=== PATIENT | male | born 1975 | race Caucasian/White ===

== ENCOUNTER 2017-02-14 11:16 | Emergency (ER) | payer OTHER ==
[~2017-02-14] VITALS: Ht 177.8 cm; Wt 88.0 kg
[2017-02-14 11:34] VITALS: BP 143/81; PULSE 68; RESP 15; TEMP 98.1; O2SAT 97
[2017-02-14] MEDS ORDERED: LIPI10TA PO (11:39)
[2017-02-14] MEDS ORDERED: CEPH-460 PO (12:31)
--- NOTE | 2017-02-14 12:32 | PD ---
HPI Chief Complaint: Laceration/Skin Injury Time Seen by Provider: 12:24 Travel History International Travel<30 days: No Contact w/Intl Traveler<30days: No Traveled to known affect area: No History of Present Illness HPI 41 -year-old male with multiple superficial abrasions/laceration to anterior neck caused by a plant one day ago. The area has become slightly more swollen and red prompting his visit today. He denies fever or chills. His tetanus immunization is up-to-date. Symptom severity is moderate. No aggravating or alleviating factors. Patient thought the area may need stitches which prompted his visit today. PFSH Past Medical History Medical History: Denies Significant Hx Social History Tobacco Use: No Allergies-Medications (Allergen,Severity, Reaction): Coded Allergies: No Known Allergies (Unverified , 02/14/17) Reported Meds & Prescriptions Reported Meds & Active Scripts Active Reported Lipitor (Atorvastatin Calcium) 10 Mg Tab 10 Mg PO HS Review of Systems Except as stated in HPI: all other systems reviewed are Neg General / Constitutional: No: Fever Physical Exam Narrative GENERAL: Alert male. Well-appearing. SKIN: Warm and dry. Multiple superficial abrasions to the anterior aspect of the neck. 1.5CM laceration to the anterior neck was In place. Mild erythema. No drainage. No lymphadenopathy. HEAD: Normocephalic. EYES: No scleral icterus. No injection or drainage. NECK: Supple, trachea midline. No lymphadenopathy. CARDIOVASCULAR: Regular rate and rhythm RESPIRATORY: Breath sounds equal bilaterally. No accessory muscle use. Data Data Last Documented VS Vital Signs Date Time Temp Pulse Resp B/P (MAP) Pulse Ox O2 Delivery O2 Flow Rate FiO2 02/14/17 11:34 98.1 68 15 143/81 (101) 97 MDM Medical Decision Making Medical Screen Exam Complete: Yes Emergency Medical Condition: Yes Differential Diagnosis Abrasions, laceration, wound infection Narrative Course 41-year-old male here with multiple superficial abrasions to the neck. He does have one wound which measures 1.5 cm with a scab in place. The wound is well approximated with a scab. It does have mild erythema. Patient be treated for superficial wound infection. Diagnosis Primary Impression: Laceration of neck Qualified Codes: S11.91XA - Laceration without foreign body of unspecified part of neck, initial encounter Additional Impression: Wound infection Referrals: Primary Care Physician Additional Instructions: Continue to apply antibiotic ointment to the area daily. Take the antibiotics as prescribed. Scripts Cephalexin (Keflex) 500 Mg Cap 500 MG PO Q6H for Infection for 7 Days, #28 CAP 0 Refills Prov: Latoya Castro 02/14/17 Disposition: 01 DISCHARGE HOME Condition: Stable Latoya Castro Feb 14, 2017 12:32
== END 2017-02-14 12:38 | disposition home or self-care (01) ==
LOC: PHEFT 11:16
DX: S11.91XA Laceration without foreign body of unspecified part of neck, initial encounter (principal); W45.8XXA Other foreign body or object entering through skin, initial encounter
CPT/HCPCS: 99283